=== PATIENT | female | born 1975 | race Caucasian/White ===

== ENCOUNTER 2018-01-29 06:13 | Emergency (ER) | payer OTHER ==
[~2018-01-29] VITALS: Ht 160 cm; Wt 60.3 kg
[~2018-01-29 06:13] MED LIST: Dilaudid PO; METHADONE10 MG PO; Motrin PO; PRENACARE TABL1 EACH PO; Zithromax PO
[2018-01-29] MEDS ORDERED: IBUPROFEN600 MG PO (10:44)
[2018-01-29] MEDS ORDERED: ULTRAM50 MG PO (10:44)
[2018-01-29 12:03] VITALS: BP 110/73
== END 2018-01-29 12:07 | disposition home or self-care (01) ==
LOC: TRA 06:13 → EME 06:13 → EDBD 06:13 → EME 06:13
DX: S32.020A Wedge compression fracture of second lumbar vertebra, initial encounter for closed fracture (principal); V49.40XA Driver injured in collision with unspecified motor vehicles in traffic accident, initial encounter; N28.1 Cyst of kidney, acquired; F17.200 Nicotine dependence, unspecified, uncomplicated
CPT/HCPCS: 72110; 72128; 72131; 73110; 73130; 99281; 99285; J1885; J2270